=== PATIENT | male | born 1970 | race Caucasian/White ===

== ENCOUNTER 2018-08-20 10:35 | Emergency (ER) | payer OTHER ==
[2018-08-20 11:05] VITALS: BP 157/104
--- NOTE | 2018-08-20 12:04 | ED Physician Documentation ---
PD HPI GI BLEED - Stated complaint Stated Complaint: MALE - Chief complaint Chief Complaint: Abd Pain - History obtained from History obtained from: Patient - History of Present Illness Timing - onset: How many days ago (several) Timing - duration: Days Timing - details: Gradual onset, Still present (has gotten very tender and firm, with less bleeding from the hemorrhoid.) Associated symptoms: BRBPR (with pain and tenderness at hemorrhoid, some bleeding with BMs. Now has hard, very tender area about the size of a quarter. Hurts to sit or walk.) Contributing factors: No: Sick contact, Bad food, Recent antibiotics Worsened by: Other (BM, walking, sitting) Similar symptoms before: Has not had sx before (has had hemorrhoids but not had it hurt and be hard like this.) Recently seen: Not recently seen Review of Systems Constitutional: denies: Fever, Chills GI: reports: Bloody / black stool (red blood with BMs). denies: Abdominal Pain, Abdominal Swelling, Vomiting, Constipation, Diarrhea, Hematemesis : denies: Dysuria, Frequency PD PAST MEDICAL HISTORY - Past Medical History Past Medical History: No Cardiovascular: None Respiratory: None - Past Surgical History Past Surgical History: No - Present Medications Home Medications: Ambulatory Orders Medication Instructions Recorded Confirmed No Known Home Medications 09/08/15 08/20/18 - Allergies Allergies/Adverse Reactions: Allergies Allergy/AdvReac Type Severity Reaction Status Date / Time No Known Drug Allergies Allergy Verified 08/20/18 11:05 - Social History Does the pt smoke?: No Smoking Status: Never smoker Does the pt drink ETOH?: Yes Does the pt have substance abuse?: No - Immunizations Immunizations are current?: No - POLST Patient has POLST: No PD ED PE NORMAL - Vitals Vital signs reviewed: Yes - General General: Alert and oriented X 3, Well developed/nourished, Other (appears uncomfortable) - Abdomen Abdomen: Soft, Non tender - Male Male : Deferred - Rectal Rectal: Other (rectal area with purple, firm, very tender segment of hemorrhoid c/w thrombosed. ) - Derm Derm: Normal color, Warm and dry Results - Vitals Vitals: Oxygen O2 Source Room air Procedures - General procedure General procedure: Thrombosed hemorrhoid - cleansed the area with water, anesth the apex of the hemorrhoid with lido with epi, then lanced it with scalpel, and expelled the clot. The hemorrhoid deflated and was less tender. PD MEDICAL DECISION MAKING - ED course Complexity details: considered differential (thrombosed hemorrhoid and I incised and evacuated the clot. ), d/w patient Departure - Departure Disposition: 01 Home, Self Care Clinical Impression: Thrombosed hemorrhoids Condition: Stable Record reviewed to determine appropriate education?: Yes Instructions: ED Hemorrhoids Follow-Up: [facility]Provider Group] [facility]] Comments: Continue your regular treatment for hemorrhoids. This should feel better with the thrombosed clot out. At this point still treated as a regular hemorrhoid. Follow-up with your primary care and referral to surgery if you wish to discuss hemorrhoidectomy in the future. Discharge Date/Time: 08/20/18 13:00
== END 2018-08-20 13:00 | disposition home or self-care (01) ==
LOC: ED 10:35
DX: K64.5 Perianal venous thrombosis (principal)
CPT/HCPCS: 46320; 99282; 99283